=== PATIENT | female | born 1995 | race Caucasian/White ===

== ENCOUNTER 2016-05-09 10:32 | Emergency (ER) | payer OTHER ==
[~2016-05-09] VITALS: Ht 162.6 cm; Wt 77.3 kg
[~2016-05-09 10:32] MED LIST: HYDR-4003 PO; NPR500T PO; ONDA8TAB10 PO; OXYC1TAB24 PO
[2016-05-09 10:37] VITALS: BP 135/92; PULSE 116; RESP 16; O2SAT 99
--- NOTE | 2016-05-09 10:49 | ED.REPORT ---
HPI-Abd Pain F Under 40 Date of Service May 09, 2016 ED Provider: Dr. Hernandez A 21 year old female with a history of C. difficile, cholecystectomy, and ovarian cysts presents to the ED complaining of diarrhea and vomiting onset 0400 today. Associated symptoms include subjective fever, chills, nausea, and body aches. She denies any blood in stool, but states that the diarrhea feels similar to her previous episode of C diff. The pt has taken Ondansetron at home with no relief, though the Ondansetron has reportedly been ineffective recently. Her last dose was two hours ago. The pt has been sick for the last week, and visited four days ago. She had a brain MRI two days ago, for a pituitary tumor where she was diagnosed with sinusitis and prescribed Amoxicillin. She began taking this yesterday, and believes that her symptoms are related to this antibiotic use. She reports baseline nausea, NOLAND and photophobia for the last two months. LNMP was last week. 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 She reports having had back surgery in December,, a cholecystectomy, and cardiac surgery at age 13. She has a mass in her pituitary gland that was diagnosed by the recent brain MRI. Nursing Notes Chief Complaint: Female Abdominal Pain Nursing Notes Reviewed: Yes Allergies: Coded Allergies: cephalexin (Verified Allergy, Severe, 08/15/15) Scheduled Ondansetron ODT (Ondansetron ODT) 8 Mg Tab.rapdis 8 MG PO TID Scheduled PRN Hydrocodone-Acetaminophen 5-325 mg (Hydrocodone-Acetaminophen 5-325 mg) 1 Each Tablet 1 TABLET PO QID PRN PRN For Pain Naproxen (Naproxen) 500 Mg Tab 500 MG PO BID PRN PRN For Pain Prochlorperazine Maleate (Compazine Suppository) 25 Mg Supp.rect 25 MG RC Q8 PRN PRN For Nausea/Vomiting oxyCODONE-Acetaminophen 5-325 mg (oxyCODONE-Acetaminophen 5-325 mg) 1 Each Tablet 2 TAB PO Q6H PRN PRN For Pain General Time Seen by MD: 10:49 Chief Complaint Diarrhea moderate Hx Obtained From: Patient Arrived By: Walk-in Onset Occurred: 5 - 8 hours ago Symptom Duration: Since onset Progression since Onset: Constant Recent Healthcare: Recent doctor visit, Recent hospitalization Similar Sx Previous: No Past Medical History Past Medical History Notes: heart surgeries age 13. Paulina Doss is her PCP Past Medical History Ovarian cysts sciatica since 2012 C. difficile Reports: Urinary tract infection Past Surgical History Resection R aortic ring via Left VATS Vascular ring Ear tubes Back surgery 12/2015 Reports: Cholecystectomy, Tonsillectomy Smoking History Never Smoker Social History Alcohol Use: "Social" Other Social History: Good social support, Local resident Ambulatory Status Independent Review of Systems Constitutional: Reports: Chills, Fever GI: Reports: Abdominal pain, Diarrhea, Nausea, Vomiting, Denies: Bloody/tarry stool Musculoskeletal: Reports: Myalgia Complete sys rev & neg: except as marked. Neurologic: Reports: Headache Physical Exam Initial Vital Signs Vital Signs (First) Date Time Temp Pulse Resp B/P Pulse Ox O2 Delivery O2 Flow Rate FiO2 05/09/16 10:37 36.8 116 16 135/92 99 Room Air Initial VS: Reviewed General/Constitutional: Awake, Alert Respiratory / Chest: Atraumatic, Breath sounds NL, Breath sounds = bilat, No respiratory distress, No rales, No rhonchi, No wheezing Cardiovascular: Heart rate NL, Regular rhythm, Heart sounds NL, No gallop, No murmurs, No rubs Abdomen: Atraumatic, No guarding, No rebound, BS normoactive no organomegaly mild left sided tenderness Back: Atraumatic, Full range of motion, No CVA tenderness Head / Eyes: Atraumatic, Normocephalic, PERRL, EOMI ENT: Airway patent, Mucous membranes moist, Pharynx NL Skin: Atraumatic, Color NL, No rash, Warm, Dry Neurologic: Oriented X3, Speech NL, No motor deficits, No sensory deficits Neck: Atraumatic, Full range of motion Upper Extremity / MS: Atraumatic, Full range of motion Lower Extremity / Pelvis / MS: Atraumatic, Full range of motion Psychiatric: Affect NL, Mood NL Interpretation & Diagnostics Lab Results Interpretation Result Diagram: 05/09/16 1120 05/09/16 1120 Test 05/09/16 11:20 05/09/16 12:00 White Blood Count 5.6th/mm3 (3.8-10.1) Red Blood Count 4.90mil/mm3 (3.90-5.20) Hemoglobin 14.8g/dL (12.0-15.6) Hematocrit 41.1% (35.0-46.0) Mean Corpuscular Volume 83.9fL (81-100) Mean Corpuscular Hemoglobin 30.2pg (27.0-35.0) Mean Corpuscular Hemoglobin Concent 36.0% (32.0-37.0) Red Cell Distribution Width 12.1% (12.3-15.4) Platelet Count 282bil/L (150-400) Neutrophils (%) (Auto) 57.4% (40-74) Lymphocytes (%) (Auto) 27.3% (14-46) Monocytes (%) (Auto) 12.1% (4-12) Eosinophils (%) (Auto) 2.3% (0-5) Basophils (%) (Auto) 0.7% (0-3) Sodium Level 138mEq/L (134-144) Potassium Level 3.9mEq/L (3.5-5.2) Chloride Level 100mEq/L (97-108) Carbon Dioxide Level 25mmol/L (18-29) Blood Urea Nitrogen 9mg/dL (6-20) Creatinine 0.73mg/dL (0.57-1.00) Estimat Glomerular Filtration Rate 142mL/min (>59) Glucose Level 95mg/dL (60-99) Calcium Level 9.3mg/dL (8.5-10.1) Magnesium Level 2.2mg/dL (1.6-2.6) Total Bilirubin 0.2mg/dL (0.0-1.2) Aspartate Amino Transf (AST/SGOT) 30U/L (0-50) Alanine Aminotransferase (ALT/SGPT) 27U/L (0-32) Alkaline Phosphatase 60U/L (25-150) Total Protein 7.9g/dL (6.4-8.4) Albumin 4.8g/dL (3.4-5.0) Lipase 21U/L (13-60) Hold Urine Received (Received) Lab Results Interpretation: urine negative urine dip unremarkable Re-Eval/Medical Decision Source of Hx: Old records Re-Evaluation/Progress : Time of Eval: 12:19 Re-Evaluation/Progress Note: Rechecked patient who feels better. She explained complications with Amoxicillin and C. Diff in the past. She plans to discontinue amoxicillin use. Has been symptomatic with NOLAND for months and not acutely febrile. I note imaging often overcalls sinusitis, in my experience. The patient has vomited 4 times this morning. She reports having a fever that accompanies her recent headaches. Headache is described as being behind eyes. She has had recent difficulty getting warm, and experiences cold sweats when she finally does. Reviewed past MRI and CT results. Explained that rectal suppository may be better than oral Abx to avoid throwing it back up. Return to ED warnings given for new or worsening symptoms. Counseled Regarding: Diagnosis, Lab results, Need for follow-up, When/why to return to ED Discharge & Departure Primary Impression: Nausea & vomiting Vomiting type: unspecified Vomiting Intractability: non-intractable Qualified Code: R11.2 - Nausea with vomiting, unspecified Disposition: Home Discharge Condition All VS Reviewed: Yes Condition: Stable Patient Instructions: Acute Nausea and Vomiting (ED) Additional Instructions: Emergency department evaluation including interview, examination and labs. Treatment with IV fluids and Compazine was helpful. May use Compazine suppositories as needed for nausea and vomiting. Get adequate fluids. Return to emergency department for increasing abdominal pain blood in diarrhea or uncontrolled vomiting. Follow up at the [facility] regarding pituitary tumor as planned. Follow up with primary care next week. Hold amoxicillin at present due to concern that it is causing increased nausea and vomiting. Referrals: Paulina Doss MD (PCP) Scribe Attestation Portions of this note were transcribed by Jcarlos Ndiaye and Connor Dawson. I, Dr. Hernandez personally performed the history, physical exam and medical decision- making; I reviewed and confirmed the accuracy of the information in the transcribed note. Signed by: Jcarlos Ndiaye and Elsa Everett, 2016 and 1243. copies to: Paulina Doss MD, Donald L MD May 09, 2016 10:49 Jcarlos Ndiaye May 09, 2016 11:02 CONNOR DAWSON May 09, 2016 11:16
[2016-05-09] MEDS ORDERED: ProchlorPERazine 5 mg/mL 2 mL Inj IVPUSH ONE (11:00)
[2016-05-09] MEDS ORDERED: 0.9% Sodium Chloride 1,000 ML IV ONE (11:00)
[2016-05-09 11:40] LABS: BASOPHILS % (AUTO) 0.7 % (0-3); EOSINOPHILS % (AUTO) 2.3 % (0-5); MONOCYTES % (AUTO) 12.1 % (4-12); Mean Corpuscular Hemoglobin 30.2 pg (27.0-35.0); Mean Corpuscular Volume 83.9 fL (81-100); NEUTROPHILS % (AUTO) 57.4 % (40-74); Platelet Count 282 bil/L (150-400)
[2016-05-09 11:58] LABS: Magnesium 2.2 mg/dL (1.6-2.6)
[2016-05-09] MEDS ORDERED: PROC25SU30 RC (12:29)
[2016-05-09 12:38] VITALS: BP 137/94; PULSE 88; RESP 16; O2SAT 99
== END 2016-05-09 12:37 | disposition home or self-care (01) ==
LOC: SED 10:32
DX: R11.2 Nausea with vomiting, unspecified (principal); R51 Headache; R19.7 Diarrhea, unspecified; R50.9 Fever, unspecified; M79.1 Myalgia; R68.83 Chills (without fever); E23.6 Other disorders of pituitary gland; Z87.42 Personal history of other diseases of the female genital tract; Z86.19 Personal history of other infectious and parasitic diseases; Z90.49 Acquired absence of other specified parts of digestive tract; Z98.890 Other specified postprocedural states; Z87.440 Personal history of urinary (tract) infections; Z88.1 Allergy status to other antibiotic agents
CPT/HCPCS: 36415; 80053; 81025; 83690; 83735; 85025; 96361; 96374; 99284; J0780; J7030